=== PATIENT | male | born 1965 | race Caucasian/White ===

== ENCOUNTER 2017-02-06 01:30 | Inpatient (IN) | payer MEDICAID ==
[~2017-02-06 01:30] MED LIST: ALBUTEROL 0.5%, 20ML ONE; ALBUTEROL/IPRATROPIUM 2.5MG/0.5MG, 3 ML ONE; methylPREDNISolone SOD SUCC 125 MG/2 ML ONE
[2017-02-06] MEDS ORDERED: ENOXAPARIN 40 MG/0.4 ML SQ SCH (02:00)
[2017-02-06] MEDS ORDERED: methylPREDNISolone SOD SUCC 125 MG/2 ML IVPush SCH (02:00)
[2017-02-08 10:59] LABS: BLOOD UREA NITROGEN 19 mg/dL (7-18)
[2017-02-08 11:20] LABS: BLOOD UREA NITROGEN 19 mg/dL (7-18)
== END 2017-02-06 08:00 | disposition left against medical advice (07) | DRG 204 ==
LOC: 4EST 01:30 → DCLOUNGE 07:20 → EDIP 15:39 → 4EST 15:39 → EDIP 16:44 → DCLOUNGE 16:44
PROVIDERS: ADMIT Hospitalist; ATTEND Hospitalist
DX: R06.02 Shortness of breath (principal); J45.909 Unspecified asthma, uncomplicated; Z88.0 Allergy status to penicillin
CPT/HCPCS: 36415; 71010; 80048; 83735; 84439; 84443; 85025; 94640